=== PATIENT | male | born 1975 | race Caucasian/White ===

== ENCOUNTER 2020-08-25 21:18 | Emergency (ER) | payer OTHER ==
[~2020-08-25 21:18] MED LIST: DELSYM30 MG/5 ML PO; SINGULAIR10 MG PO; TAMIFLU75 MG PO; VENTOLIN HFA 66.7 GM INH
== END 2020-08-26 01:30 | disposition left against medical advice (07) ==
LOC: ER1 21:18
DX: K42.9 Umbilical hernia without obstruction or gangrene (principal); K21.9 Gastro-esophageal reflux disease without esophagitis
CPT/HCPCS: 96374; 96375; 99283; J2270

== ENCOUNTER 2020-10-26 11:43 | Emergency (ER) | payer OTHER ==
[2020-10-26 12:06] LABS: HEMOGLOBIN 16.7 gm/dl (14.0-17.5); RED BLOOD COUNT 5.12 M/UL (4.20-5.50); WHITE BLOOD COUNT 10.5 K/UL (4.5-11.0)
[2020-10-26 12:33] LABS: BUN/CREATININE RATIO 12 (0-10)
[2020-10-26] MEDS ORDERED: CLARITIN10 M2 PO (14:17)
[2020-10-26] MEDS ORDERED: EPIPEN 2-P0.3 MG/0.3 INJ (14:17)
== END 2020-10-26 15:45 | disposition home or self-care (01) ==
LOC: ER1 11:43
PROVIDERS: Physician Assistant
DX: T78.40XA Allergy, unspecified, initial encounter (principal); R06.02 Shortness of breath; K21.9 Gastro-esophageal reflux disease without esophagitis
CPT/HCPCS: 71045; 80053; 82550; 82553; 83874; 84484; 85025; 93005; 99285

== ENCOUNTER → 2021-10-30 | Outpatient (CLI) | payer OTHER ==
[~2021-10-30] MED LIST changes: +CLARITIN10 M2 PO; +EPIPEN 2-P0.3 MG/0.3 INJ
== END ==
LOC: SLEEP 13:28
DX: G47.33 Obstructive sleep apnea (adult) (pediatric) (principal)
CPT/HCPCS: 95811